=== PATIENT | male | born 1970 | race Caucasian/White ===

== ENCOUNTER 2022-12-16 14:06 | Emergency (ER) | payer OTHER ==
[~2022-12-16] VITALS: Ht 175.3 cm; Wt 90.7 kg
[2022-12-16] MEDS ORDERED: ZESTORETIC 10-1 EACH PO (14:14)
== END 2022-12-16 16:50 | disposition home or self-care (01) ==
LOC: ER 14:06
DX: M25.562 Pain in left knee (principal)